=== PATIENT | female | born 1935 | race Two or more races ===

== ENCOUNTER 2016-11-12 15:20 | Inpatient (IN) | payer OTHER ==
[~2016-11-12] VITALS: Ht 149.9 cm; Wt 51.5 kg
[~2016-11-12 15:20] MED LIST: LEVO25CA; METF-312 PO; VALS40TA2
[2016-11-12 16:46] LABS: Urine Bilirubin Negative (Negative); Urine Blood Negative /uL (Negative); Urine Color Yellow (Yellow); Urine Glucose Normal (Normal); Urine Ketone Negative (Negative); Urine Nitrite Negative (Negative); Urine RBC 2 /hpf (0 - 4); Urine Squamous Epithelial Cell FEW /hpf (<5); Urine Urobilinogen Normal (Negative); Urine pH 6.5 (5.0-8.0)
[2016-11-12 16:58] LABS: Albumin 3.9 g/dL (3.4-5.0); BUN/Creatinine Ratio 27.1; Bilirubin, Total 0.3 mg/dL (0.2-1.0); Calcium 9.3 mg/dL (8.5-10.1); Magnesium 1.9 mg/dL (1.6-2.6); Potassium 3.7 mmol/L (3.5-5.1); Total Protein 7.4 g/dL (6.4-8.2)
[2016-11-12 17:03] LABS: B-Type Natriuretic Peptide 32.19 pg/mL (0-100)
[2016-11-12 17:09] LABS: Basophils # (auto) 0 uL; Basophils % (auto) 0.4 % (0.0-2.0); Eosinophils # (auto) 0.1 uL; Eosinophils % (auto) 1.7 % (0.0-7.0); Hematocrit 33.1 % (36.0-46.0); Hemoglobin 10.7 g/dL (12.2-16.2); Lymphocytes # (auto) 2.4 uL; Lymphocytes % (auto) 41.2 % (10.0-50.0); Mean Corpuscular Hgb Conc. 32.4 g/dL (32.0-36.0); Mean Corpuscular Volume 83.5 fL (80.0-100.0); Mean Platelet Volume 9.8 fL (7.4-10.4); Monocytes # (auto) 0.3 uL; Monocytes % (auto) 5.1 % (0.0-12.0); Neutrophils % (auto) 51.6 % (37.0-80.0); Platelet Count (auto) 193 10^3/uL (140-450); Red Cell Distribution Width 14.4 % (11.6-16.0); White Blood Cell 5.7 10^3/uL (4.4-10.8)
[2016-11-12 17:10] LABS: Temperature: 21.9 C (20.0-25.0)
[2016-11-13] MEDS ORDERED: MORPHINE SULFATE 4 MG/ML SYRG IM ONE (02:30)
[2016-11-13] MEDS ORDERED: ASPirin 81 mg TAB PO ONE (02:30)
[2016-11-13] MEDS ORDERED: ONDANSETRON HCL 4 MG/2 ML VIAL IV ONE (02:30)
[2016-11-13] MEDS ORDERED: NITROGLYCERIN 0.4 MG SL TAB SL PRN (02:45)
[2016-11-13] MEDS ORDERED: MORPHINE SULF INJ 2 MG/ML SYRINGE 1ML IV PRN (02:45)
[2016-11-13] MEDS ORDERED: LACTULOSE 20Gm/30ML SOLN PO PRN (02:45)
[2016-11-13] MEDS ORDERED: DEXTROSE (50%) 50ML SYRG IV PRN (02:45)
[2016-11-13] MEDS ORDERED: SODIUM CHLORIDE 0.9% 1,000 ML IV ONE (02:45)
[2016-11-13] MEDS ORDERED: MORPHINE SULFATE 4 MG/ML SYRG IV ONE (02:45)
[2016-11-13] MEDS: cefTRIAXone 1GM/50ML D5W 50 ML IV SCH (02:54)
[2016-11-13 03:50] VITALS: BP 167/67
[2016-11-13 05:00] VITALS: BP 167/67
[2016-11-13] MEDS: ACCU-CHEK COMFORT CURVE STRIP VI SCH ×4 (06:00→23:55)
[2016-11-13] MEDS: InsuLIN REG 1unit/0.01ml Soln (100units/ml) SC SCH ×4 (06:30→23:59)
[2016-11-13 09:00] VITALS: BP 134/76
[2016-11-13] MEDS ORDERED: METOPROLOL TARTRATE 25 MG TAB PO SCH (10:00)
[2016-11-13] MEDS ORDERED: ENALAPRIL MALEATE 10 MG TAB PO SCH (10:00)
[2016-11-13] MEDS: PANTOPRAZOLE SODIUM 40 MG/10 ML VIAL IV SCH (10:32)
[2016-11-13] MEDS: METOPROLOL TARTRATE 50 MG TAB PO SCH ×2 (10:34→22:17)
[2016-11-13] MEDS: ASPirin 81 mg TAB PO SCH (10:34)
[2016-11-13] MEDS: ENOXAPARIN SOD 30 MG/0.3 ML SYRINGE SC SCH (10:36)
[2016-11-13] MEDS: NITROGLYCERIN 0.2MG/HR TOPICAL PATCH TD SCH (10:36)
[2016-11-13] MEDS: VALSARTAN 80 MG TAB PO SCH (10:37)
[2016-11-13 12:46] VITALS: BP 134/59
[2016-11-13 17:00] VITALS: BP 105/49
[2016-11-13 21:34] VITALS: BP 110/48
[2016-11-13] MEDS: ATORVASTATIN 20 MG TAB PO SCH (22:17)
[2016-11-14] MEDS: cefTRIAXone 1GM/50ML D5W 50 ML IV SCH (02:50)
[2016-11-14 05:23] VITALS: BP 114/60
[2016-11-14 05:45] LABS: Basophils # (auto) 0 uL; Basophils % (auto) 0.4 % (0.0-2.0); Eosinophils # (auto) 0.1 uL; Eosinophils % (auto) 2.3 % (0.0-7.0); Hematocrit 29.4 % (36.0-46.0); Hemoglobin 9.7 g/dL (12.2-16.2); Lymphocytes # (auto) 2.3 uL; Lymphocytes % (auto) 46.5 % (10.0-50.0); Mean Corpuscular Hemoglobin 27.2 pg (28.0-32.0); Mean Corpuscular Volume 82.6 fL (80.0-100.0); Mean Platelet Volume 9.8 fL (7.4-10.4); Monocytes # (auto) 0.4 uL; Neutrophils # (auto) 2.1 uL; Neutrophils % (auto) 42.8 % (37.0-80.0); Platelet Count (auto) 165 10^3/uL (140-450); Red Cell Distribution Width 14.1 % (11.6-16.0); White Blood Cell 4.8 10^3/uL (4.4-10.8)
[2016-11-14] MEDS: ACCU-CHEK COMFORT CURVE STRIP VI SCH ×4 (06:04→23:53)
[2016-11-14] MEDS: InsuLIN REG 1unit/0.01ml Soln (100units/ml) SC SCH ×4 (06:08→23:53)
[2016-11-14 06:11] LABS: Albumin 3.1 g/dL (3.4-5.0); BUN/Creatinine Ratio 22.9; Bilirubin, Total 0.3 mg/dL (0.2-1.0); Calcium 8.5 mg/dL (8.5-10.1); Potassium 3.9 mmol/L (3.5-5.1); Total Protein 6.1 g/dL (6.4-8.2)
[2016-11-14 08:00] VITALS: BP 118/52
[2016-11-14] MEDS: PANTOPRAZOLE SODIUM 40 MG/10 ML VIAL IV SCH (09:29)
[2016-11-14] MEDS: ENOXAPARIN SOD 30 MG/0.3 ML SYRINGE SC SCH (09:29)
[2016-11-14] MEDS: ASPirin 81 mg TAB PO SCH (09:29)
[2016-11-14] MEDS: METOPROLOL TARTRATE 50 MG TAB PO SCH ×2 (09:30→21:42)
[2016-11-14] MEDS: VALSARTAN 80 MG TAB PO SCH (09:30)
[2016-11-14] MEDS: NITROGLYCERIN 0.2MG/HR TOPICAL PATCH TD SCH (09:30)
[2016-11-14 12:00] VITALS: BP 115/72
[2016-11-14 16:00] VITALS: BP 102/48
[2016-11-14] MEDS: ATORVASTATIN 20 MG TAB PO SCH (21:42)
[2016-11-14 22:00] VITALS: BP 102/57
[2016-11-15] MEDS: cefTRIAXone 1GM/50ML D5W 50 ML IV SCH (02:51)
[2016-11-15 05:00] VITALS: BP 113/59
[2016-11-15 05:27] LABS: INR 1.06 (0.9-1.15); Partial Thromboplastin Time 28.4 sec (22.64-33.71); Prothrombin Time 10.9 sec (9.37-12.3)
[2016-11-15] MEDS: ACCU-CHEK COMFORT CURVE STRIP VI SCH ×2 (05:44→11:58)
[2016-11-15] MEDS: InsuLIN REG 1unit/0.01ml Soln (100units/ml) SC SCH ×2 (05:49→11:58)
[2016-11-15] MEDS ORDERED: LEVOTHYROXINE SODIUM 100 MCG TAB PO SCH (07:00)
[2016-11-15 08:00] VITALS: BP 104/52
[2016-11-15] MEDS: ASPirin 81 mg TAB PO SCH (08:32)
[2016-11-15] MEDS: PANTOPRAZOLE SODIUM 40 MG/10 ML VIAL IV SCH (08:32)
[2016-11-15] MEDS: VALSARTAN 80 MG TAB PO SCH (08:32)
[2016-11-15] MEDS: ENOXAPARIN SOD 30 MG/0.3 ML SYRINGE SC SCH (08:33)
[2016-11-15] MEDS: METOPROLOL TARTRATE 50 MG TAB PO SCH (08:33)
[2016-11-15] MEDS: NITROGLYCERIN 0.2MG/HR TOPICAL PATCH TD SCH (08:33)
[2016-11-15] MEDS ORDERED: fentaNYL CITRATE 100 MCG/2 ML VL ONE (08:56)
[2016-11-15] MEDS ORDERED: SODIUM CHL 0.9% 0 ML ONE (08:57)
[2016-11-15] MEDS ORDERED: ANGIOMAX 250 MG VIAL IV ONE (08:57)
[2016-11-15] MEDS ORDERED: MIDAZOLAM HCL 1MG/1ML-2 ML VIAL ONE (08:57)
[2016-11-15] MEDS ORDERED: LIDOCAINE 2%HCL (LOCAL ANESTH.) INJ 20ML MDV ONE (09:10)
[2016-11-15] MEDS ORDERED: IODIXANOL 320MG/ML 100ML BTL IV ONE (09:10)
[2016-11-15] MEDS ORDERED: SODIUM CHLORIDE 0.9% 1,000 ML IV SCH (10:59)
[2016-11-15 11:49] VITALS: BP 146/56
[2016-11-15 15:53] VITALS: BP 104/52
[2016-11-15 16:00] VITALS: BP 135/90
== END 2016-11-15 17:48 | disposition home or self-care (01) | DRG 871 ==
LOC: ER 15:32 → TELE 15:33 → TELE-WESTW 11-13 03:57
PROVIDERS: ADMIT Family Medicine; ATTEND Internal Medicine Pulmonary Disease
PROC: 4A023N7 Measurement of Cardiac Sampling and Pressure, Left Heart, Percutaneous Approach (ICD-10-PCS; principal; 2016-11-15)
PROC: B2111ZZ Fluoroscopy of Multiple Coronary Arteries using Low Osmolar Contrast (ICD-10-PCS; 2016-11-15)
PROC: B2151ZZ Fluoroscopy of Left Heart using Low Osmolar Contrast (ICD-10-PCS; 2016-11-15)
DX: A41.9 Sepsis, unspecified organism (principal); I21.4 Non-ST elevation (NSTEMI) myocardial infarction; N39.0 Urinary tract infection, site not specified; I25.110 Atherosclerotic heart disease of native coronary artery with unstable angina pectoris; I11.9 Hypertensive heart disease without heart failure; D63.8 Anemia in other chronic diseases classified elsewhere; E11.65 Type 2 diabetes mellitus with hyperglycemia; E03.9 Hypothyroidism, unspecified; Z79.899 Other long term (current) drug therapy; Z79.84 Long term (current) use of oral hypoglycemic drugs; Z90.49 Acquired absence of other specified parts of digestive tract; Z90.710 Acquired absence of both cervix and uterus
CPT/HCPCS: 36415; 71010; 71020; 80053; 80061; 81001; 82270; 82962; 83036; 83605; 83735; 83880; 84443; 84484; 85025; 85049; 85610; 85730; 86850; 86900; 86901; 87040; 87086; 93005; 93458; 99152; C9113; J0696; J1815; J2250; Q9967

== ENCOUNTER → 2017-10-19 | Outpatient (CLI) | payer OTHER ==
[~2017-10-19] MED LIST changes: -METF-312 PO; +METF-370 PO
[2017-10-19 07:57] LABS: Basophils # (auto) 0 uL; Basophils % (auto) 0.3 % (0.0-2.0); Eosinophils # (auto) 0.1 uL; Hematocrit 33.4 % (36.0-46.0); Hemoglobin 10.8 g/dL (12.2-16.2); Mean Corpuscular Volume 82.1 fL (80.0-100.0); Monocytes # (auto) 0.4 uL
[2017-10-19 07:59] LABS: Eosinophils % (auto) 1.5 % (0.0-7.0); Lymphocytes # (auto) 2.9 uL; Lymphocytes % (auto) 39.3 % (10.0-50.0); Mean Corpuscular Hemoglobin 26.6 pg (28.0-32.0); Mean Corpuscular Hgb Conc. 32.4 g/dL (32.0-36.0); Mean Platelet Volume 9.2 fL (6.9-10.8); Monocytes % (auto) 5.8 % (0.0-12.0); Neutrophils # (auto) 3.9 uL; Neutrophils % (auto) 53.1 % (37.0-80.0); Platelet Count (auto) 166 10^3/uL (140-450); Red Cell Distribution Width 15.3 % (11.8-14.3); White Blood Cell 7.4 10^3/uL (4.4-10.8)
[2017-10-19 08:36] LABS: Albumin 3.6 g/dL (3.4-5.0); BUN/Creatinine Ratio 21.7; Bilirubin, Total 0.4 mg/dL (0.2-1.0); Calcium 9.1 mg/dL (8.5-10.1); Potassium 4.2 mmol/L (3.5-5.1); Total Protein 7.2 g/dL (6.4-8.2)
== END | disposition home or self-care (01) ==
LOC: LAB 07:06
PROVIDERS: ATTEND Physician Assistant
DX: E11.9 Type 2 diabetes mellitus without complications (principal); D64.9 Anemia, unspecified; E78.5 Hyperlipidemia, unspecified; R52 Pain, unspecified
CPT/HCPCS: 36415; 80053; 80061; 83036; 84443; 85025

== ENCOUNTER → 2018-09-13 | Outpatient (CLI) | payer OTHER ==
[2018-09-13 08:34] LABS: Basophils # (auto) 0 uL; Basophils % (auto) 0.6 % (0.0-2.0); Eosinophils # (auto) 0.1 uL; Eosinophils % (auto) 2.8 % (0.0-7.0); Hematocrit 34.4 % (36.0-46.0); Hemoglobin 11.1 g/dL (12.2-16.2); Lymphocytes # (auto) 1.8 uL; Lymphocytes % (auto) 40.2 % (10.0-50.0); Mean Corpuscular Hemoglobin 26.5 pg (28.0-32.0); Mean Corpuscular Hgb Conc. 32.1 g/dL (32.0-36.0); Mean Corpuscular Volume 82.6 fL (80.0-100.0); Monocytes # (auto) 0.3 uL; Monocytes % (auto) 6.5 % (0.0-12.0); Neutrophils # (auto) 2.3 uL; Neutrophils % (auto) 49.9 % (37.0-80.0); Nucleated Red Blood Cells % 0.1 %; Platelet Count (auto) 175 10^3/uL (140-450); Red Blood Cells 4.17 10^6/uL (4.0-5.20); Red Cell Distribution Width 16.4 % (11.8-14.3); White Blood Cell 4.5 10^3/uL (4.4-10.8)
[2018-09-13 08:37] LABS: Urine Bacteria NONE SEEN /hpf (None Seen); Urine Blood TRACE /uL (Negative); Urine Specific Gravity 1.014 (1.001-1.035); Urine WBC 25 /hpf (0 - 5)
[2018-09-13 09:20] LABS: Free T4 (Free Thyroxine) 1.04 ng/dL (0.89-1.76); T3 Total 0.93 ng/mL (0.60-1.81)
[2018-09-13 18:28] LABS: Potassium 4.3 mmol/L (3.5-5.1)
[2018-09-13 18:40] LABS: Albumin 3.7 g/dL (3.4-5.0); BUN/Creatinine Ratio 22.8; Bilirubin, Total 0.4 mg/dL (0.2-1.0); Total Protein 7.2 g/dL (6.4-8.2)
== END | disposition home or self-care (01) ==
LOC: LAB 07:59
PROVIDERS: ATTEND Physician Assistant
DX: I10 Essential (primary) hypertension (principal); E03.9 Hypothyroidism, unspecified; E11.65 Type 2 diabetes mellitus with hyperglycemia; E78.5 Hyperlipidemia, unspecified
CPT/HCPCS: 36415; 80053; 80061; 81001; 83036; 84439; 84443; 84480; 85025

== ENCOUNTER → 2019-11-30 | Outpatient (CLI) | payer OTHER ==
[~2019-11-30] MED LIST changes: -LEVO25CA; +LEVO25CA2
[2019-11-30 08:50] LABS: Basophils # (auto) 0 uL; Basophils % (auto) 0.5 % (0.0-2.0); Eosinophils # (auto) 0.1 uL; Eosinophils % (auto) 1.9 % (0.0-7.0); Hematocrit 33.5 % (36.0-46.0); Hemoglobin 10.9 g/dL (12.2-16.2); Lymphocytes % (auto) 32.8 % (10.0-50.0); Mean Corpuscular Hemoglobin 26.9 pg (28.0-32.0); Mean Corpuscular Hgb Conc. 32.4 g/dL (32.0-36.0); Monocytes # (auto) 0.3 uL; Monocytes % (auto) 5.5 % (0.0-12.0); Neutrophils # (auto) 3.5 uL; Neutrophils % (auto) 59.3 % (37.0-80.0); Nucleated Red Blood Cells % 0.1 %; Platelet Count (auto) 196 10^3/uL (140-450); Red Blood Cells 4.04 10^6/uL (4.0-5.20); Red Cell Distribution Width 14.9 % (11.8-14.3)
[2019-11-30 09:00] LABS: Urine Bacteria NONE SEEN /hpf (None Seen); Urine Blood Negative /uL (Negative); Urine Specific Gravity 1.007 (1.001-1.035); Urine WBC 9 /hpf (0 - 5)
[2019-11-30 09:22] LABS: Albumin 3.3 g/dL (3.4-5.0); Calcium 9.3 mg/dL (8.5-10.1); Potassium 3.9 mmol/L (3.5-5.1)
[2019-11-30 09:26] LABS: Bilirubin, Total 0.3 mg/dL (0.2-1.0); Total Protein 6.7 g/dL (6.4-8.2)
== END | disposition home or self-care (01) ==
LOC: LAB 08:35
PROVIDERS: ATTEND Physician Assistant
DX: E11.9 Type 2 diabetes mellitus without complications (principal); E11.65 Type 2 diabetes mellitus with hyperglycemia; E03.9 Hypothyroidism, unspecified; E78.5 Hyperlipidemia, unspecified; I10 Essential (primary) hypertension
CPT/HCPCS: 36415; 80053; 80061; 81001; 83036; 84443; 85025

== ENCOUNTER 2021-12-15 18:09 | Inpatient (IN) | payer OTHER ==
[~2021-12-15] VITALS: Ht 149.9 cm; Wt 53.7 kg
[2021-12-15 18:35] VITALS: BP 136/58
[2021-12-15] MEDS ORDERED: MORPHINE SULFATE INJECTION 2 MG/ML SYRG IV PRN (18:45)
[2021-12-15] MEDS ORDERED: HYDROcodone-ACET 5/325MG TAB PO ONE (18:45)
[2021-12-15] MEDS ORDERED: DEXTROSE (50%) 50ML SYRG IV PRN (18:45)
[2021-12-15] MEDS ORDERED: NITROGLYCERIN 0.4 MG SL TAB SL PRN (18:45)
[2021-12-15] MEDS ORDERED: LORazepam 0.5 MG TAB PO PRN (18:45)
[2021-12-15] MEDS ORDERED: HYDROcodone-ACET 5/325MG TAB PO PRN (18:45)
[2021-12-15] MEDS ORDERED: LACTULOSE 20Gm/30ML SOLN PO PRN (18:45)
[2021-12-15] MEDS ORDERED: IPRATROPIUM BROM 0.5 MG/2.5ML INH SOL NEB ONE (18:45)
[2021-12-15 20:05] LABS: Basophils # (auto) 0 10 ^3/uL (0-0.2); Eosinophils # (auto) 0 10 ^3/uL (0-0.8); Eosinophils % (auto) 0.4 % (0.0-7.0); Hemoglobin 7.4 g/dL (12.2-16.2); Lymphocytes # (auto) 0.9 10 ^3/uL (0.4-5.4)
[2021-12-15 20:07] LABS: Basophils % (auto) 0.3 % (0.0-2.0); Hematocrit 23.6 % (36.0-46.0); Lymphocytes % (auto) 9.1 % (10.0-50.0); Mean Corpuscular Hemoglobin 21.4 pg (28.0-32.0); Mean Corpuscular Hgb Conc. 31.3 g/dL (32.0-36.0); Mean Corpuscular Volume 68.4 fL (80.0-100.0); Monocytes # (auto) 0.7 10 ^3/uL (0-1.3); Monocytes % (auto) 6.6 % (0.0-12.0); Neutrophils # (auto) 8.2 10 ^3/uL (1.6-8.6); Neutrophils % (auto) 83.6 % (37.0-80.0); Red Blood Cells 3.45 10^6/uL (4.0-5.20); Red Cell Distribution Width 19.7 % (11.8-14.3); White Blood Cell 9.8 10^3/uL (4.4-10.8)
[2021-12-15 20:25] LABS: Albumin 2.8 g/dL (3.4-5.0); Calcium 8.8 mg/dL (8.5-10.1); Magnesium 2.4 mg/dL (1.6-2.6); Potassium 3.9 mmol/L (3.5-5.1)
[2021-12-15 20:28] LABS: INR 1.13 (0.9-1.15); Partial Thromboplastin Time 31.5 sec (23.6-33.0)
[2021-12-15 20:34] LABS: Bilirubin, Total 1.3 mg/dL (0.2-1.0); Phosphorus 3.2 mg/dL (2.5-4.90); Total Protein 6.5 g/dL (6.4-8.2)
[2021-12-15 22:00] VITALS: BP 133/56
[2021-12-15] MEDS ORDERED: ATORVASTATIN 20 MG TAB PO SCH (22:00)
[2021-12-15] MEDS ORDERED: IPRATROPIUM BROM 0.5 MG/2.5ML INH SOL NEB SCH (22:00)
[2021-12-15] MEDS: SODIUM CHLORIDE 0.9% 1,000 ML IV SCH (22:30)
[2021-12-15] MEDS: ACCU-CHEK COMFORT CURVE STRIP VI SCH (22:51)
[2021-12-15] MEDS: PANTOPRAZOLE 40 MG/10 ML VIAL INJ IV SCH (22:51)
[2021-12-15] MEDS: InsuLIN REG 1unit/0.01ml Soln (100units/ml) SC SCH (23:06)
[2021-12-16] VITALS (15 sets, daily range): BP systolic 142–173; BP diastolic 56–88
[2021-12-16 05:21] LABS: Amphetamine Screen, Urine NEGATIVE (NEGATIVE); Barbiturate Scree,Urine NEGATIVE (NEGATIVE); Benzodiazephine Screen, Urine NEGATIVE (NEGATIVE); Cannabinoid Screen, Urine NEGATIVE (NEGATIVE); Cocaine Screen, Urine NEGATIVE (NEGATIVE); Opiate Scree,Urine POSITIVE (NEGATIVE); Phencyclidine Screen, Urine NEGATIVE (NEGATIVE)
[2021-12-16 05:59] LABS: Urine Bacteria FEW /hpf (None Seen); Urine Blood Negative /uL (Negative); Urine Hyaline Cast FEW /lpf (0 - 2); Urine Specific Gravity 1.017 (1.001-1.035); Urine WBC 10 /hpf (0 - 5)
[2021-12-16] MEDS: ACCU-CHEK COMFORT CURVE STRIP VI SCH ×4 (05:59→21:28)
[2021-12-16] MEDS: InsuLIN REG 1unit/0.01ml Soln (100units/ml) SC SCH ×4 (06:02→21:29)
[2021-12-16 07:44] LABS: Basophils # (auto) 0 10 ^3/uL (0-0.2); Basophils % (auto) 0.3 % (0.0-2.0); Eosinophils # (auto) 0.1 10 ^3/uL (0-0.8); Lymphocytes # (auto) 0.8 10 ^3/uL (0.4-5.4); Monocytes # (auto) 0.4 10 ^3/uL (0-1.3); Neutrophils # (auto) 3.5 10 ^3/uL (1.6-8.6); White Blood Cell 4.8 10^3/uL (4.4-10.8)
[2021-12-16 07:46] LABS: Eosinophils % (auto) 1.7 % (0.0-7.0); Lymphocytes % (auto) 16.6 % (10.0-50.0); Mean Corpuscular Hgb Conc. 30.6 g/dL (32.0-36.0); Mean Corpuscular Volume 68.6 fL (80.0-100.0); Monocytes % (auto) 8.6 % (0.0-12.0); Neutrophils % (auto) 72.8 % (37.0-80.0); Nucleated Red Blood Cells % 0.1 %; Red Blood Cells 3.21 10^6/uL (4.0-5.20); Red Cell Distribution Width 19.3 % (11.8-14.3)
[2021-12-16 07:56] LABS: INR 1.12 (0.9-1.15); Partial Thromboplastin Time 29.9 sec (23.6-33.0)
[2021-12-16 08:05] LABS: Hemoglobin 6.8 g/dL (12.2-16.2)
[2021-12-16 08:30] LABS: Alanine Aminotransferase 53 U/L (13-56); Albumin 2.4 g/dL (3.4-5.0); Alkaline Phosphatase 281 U/L (45-117); Aspartate Aminotransferase 93 U/L (15-37); BUN/Creatinine Ratio 20.9; Bilirubin, Total 0.6 mg/dL (0.2-1.0); Blood Urea Nitrogen 27 mg/dL (7-18); CRP High Sensitivity 6.47 mg/dL (< 0.3); Calcium 8.1 mg/dL (8.5-10.1); Carbon Dioxide 23 mmol/L (21-32); Cholesterol 93 mg/dL (< 200); GFR African American 50 mL/min; GFR Non-African American 41 mL/min; Glucose 147 mg/dL (74-106); HDL Cholesterol 29 mg/dL (40-59); LDL Cholesterol 45 mg/dL (< 100); Total Protein 5.9 g/dL (6.4-8.2); Triglycerides 119 mg/dL (< 150); Uric Acid 7.9 mg/dL (2.6-6.0)
[2021-12-16 08:44] LABS: Anion Gap 6 (5-15); Chloride 113 mmol/L (98-107); Potassium 3.8 mmol/L (3.5-5.1); Sodium 142 mmol/L (136-145)
[2021-12-16] MEDS: PANTOPRAZOLE 40 MG/10 ML VIAL INJ IV SCH ×2 (09:36→22:07)
[2021-12-16] MEDS ORDERED: ASPirin 81 mg TAB PO SCH (10:00)
[2021-12-16] MEDS ORDERED: ENOXAPARIN SOD 30 MG/0.3 ML SYRINGE SC SCH (10:00)
[2021-12-16] MEDS: SODIUM CHLORIDE 0.9% 1,000 ML IV SCH (15:03)
[2021-12-16 19:08] LABS: Basophils # (auto) 0 10 ^3/uL (0-0.2); Basophils % (auto) 0.3 % (0.0-2.0); Eosinophils # (auto) 0.1 10 ^3/uL (0-0.8); Eosinophils % (auto) 1.7 % (0.0-7.0); Hematocrit 27.2 % (36.0-46.0); Hemoglobin 8.8 g/dL (12.2-16.2); Lymphocytes # (auto) 0.8 10 ^3/uL (0.4-5.4); Lymphocytes % (auto) 15.3 % (10.0-50.0); Mean Corpuscular Hemoglobin 23.8 pg (28.0-32.0); Mean Corpuscular Hgb Conc. 32.3 g/dL (32.0-36.0); Mean Corpuscular Volume 73.9 fL (80.0-100.0); Monocytes # (auto) 0.4 10 ^3/uL (0-1.3); Monocytes % (auto) 8.3 % (0.0-12.0); Neutrophils # (auto) 3.7 10 ^3/uL (1.6-8.6); Neutrophils % (auto) 74.4 % (37.0-80.0); Red Blood Cells 3.69 10^6/uL (4.0-5.20)
[2021-12-16 19:09] LABS: Red Cell Distribution Width 25.2 % (11.8-14.3)
[2021-12-16 19:27] LABS: Albumin 2.4 g/dL (3.4-5.0); Calcium 8.3 mg/dL (8.5-10.1); Potassium 4.1 mmol/L (3.5-5.1)
[2021-12-16 19:31] LABS: BUN/Creatinine Ratio 21.8; Bilirubin, Total 0.7 mg/dL (0.2-1.0); Total Protein 5.7 g/dL (6.4-8.2)
[2021-12-16 19:40] LABS: INR 1.11 (0.9-1.15); Partial Thromboplastin Time 25.7 sec (23.6-33.0)
[2021-12-16] MEDS: ATORVASTATIN 20 MG TAB PO SCH (21:28)
[2021-12-17] VITALS (11 sets, daily range): BP systolic 127–197; BP diastolic 60–82
[2021-12-17] MEDS: hydrALAZINE HCL 20 MG/ML VL IV PRN ×2 (05:01→15:20)
[2021-12-17] MEDS: InsuLIN REG 1unit/0.01ml Soln (100units/ml) SC SCH ×4 (05:17→21:20)
[2021-12-17] MEDS: ACCU-CHEK COMFORT CURVE STRIP VI SCH ×4 (05:17→21:19)
[2021-12-17 05:41] LABS: Basophils # (auto) 0 10 ^3/uL (0-0.2); Eosinophils # (auto) 0.1 10 ^3/uL (0-0.8); Hemoglobin 10.2 g/dL (12.2-16.2); Lymphocytes # (auto) 0.9 10 ^3/uL (0.4-5.4); Neutrophils # (auto) 3.3 10 ^3/uL (1.6-8.6); Nucleated Red Blood Cells % 0.1 %; White Blood Cell 4.7 10^3/uL (4.4-10.8)
[2021-12-17 05:43] LABS: Basophils % (auto) 0.5 % (0.0-2.0); Eosinophils % (auto) 2.3 % (0.0-7.0); Hematocrit 31.3 % (36.0-46.0); Lymphocytes % (auto) 19.3 % (10.0-50.0); Mean Corpuscular Hgb Conc. 32.6 g/dL (32.0-36.0); Mean Corpuscular Volume 76.8 fL (80.0-100.0); Monocytes # (auto) 0.4 10 ^3/uL (0-1.3); Monocytes % (auto) 8.7 % (0.0-12.0); Neutrophils % (auto) 69.2 % (37.0-80.0); Red Blood Cells 4.08 10^6/uL (4.0-5.20)
[2021-12-17 05:45] LABS: Red Cell Distribution Width 24.9 % (11.8-14.3)
[2021-12-17] MEDS: PANTOPRAZOLE 40 MG/10 ML VIAL INJ IV SCH ×2 (10:11→21:19)
[2021-12-17] MEDS ORDERED: ceFAZolin 1GM/50ML 100 ML IV ONE (15:02)
[2021-12-17] MEDS ORDERED: MIDAZOLAM HCL 2MG/2ML 2ml VIAL (1mg/ml) ONE (15:24)
[2021-12-17] MEDS ORDERED: fentaNYL CITRATE 100 MCG/2 ML VL ONE (15:24)
[2021-12-17] MEDS ORDERED: GLYCOPYRROLATE 0.2 MG/ML 1ML VIAL ONE (15:25)
[2021-12-17] MEDS ORDERED: ePHEDrine SULFATE 50 MG/ML AMP ONE (15:25)
[2021-12-17] MEDS ORDERED: ONDANSETRON HCL 4 MG/2 ML VIAL ONE (15:25)
[2021-12-17] MEDS ORDERED: PHENYLEPHRINE HCL 10 MG/ML VL ONE (15:25)
[2021-12-17] MEDS ORDERED: PROPOFOL 10 MG/ML 20 ML IV ONE (15:25)
[2021-12-17] MEDS ORDERED: MORPHINE SULF PF 2 MG/2 ML SYRG ONE (15:27)
[2021-12-17] MEDS ORDERED: BUPIVACAINE 0.5% P/F INJ 10 ML VIAL ONE (15:28)
[2021-12-17] MEDS ORDERED: diphenhdrAMINE HCL 50 MG/1 ML VL IV PRN (17:00)
[2021-12-17] MEDS ORDERED: ONDANSETRON HCL 4 MG/2 ML VIAL IV PRN ×2 (17:00)
[2021-12-17] MEDS ORDERED: NALOXONE HCL 0.4 MG/ML VIAL IV PRN ×2 (17:00)
[2021-12-17] MEDS ORDERED: DexAMETHasone SOD PHOS 10MG/1ML VIAL INJ IV PRN (17:00)
[2021-12-17] MEDS: ceFAZolin 1GM/50ML 50 ML IV SCH ×2 (19:45→23:46)
[2021-12-17] MEDS: ONDANSETRON HCL 4 MG/2 ML VIAL IV PRN (19:46)
[2021-12-17] MEDS: ATORVASTATIN 20 MG TAB PO SCH (21:19)
[2021-12-18] VITALS (20 sets, daily range): BP systolic 128–195; BP diastolic 45–83
[2021-12-18] MEDS: ceFAZolin 1GM/50ML 50 ML IV SCH ×3 (05:30→21:40)
[2021-12-18] MEDS: ACCU-CHEK COMFORT CURVE STRIP VI SCH ×4 (06:30→21:40)
[2021-12-18] MEDS: InsuLIN REG 1unit/0.01ml Soln (100units/ml) SC SCH ×4 (06:31→21:49)
[2021-12-18 07:14] LABS: Basophils # (auto) 0 10 ^3/uL (0-0.2); Basophils % (auto) 0.1 % (0.0-2.0); Eosinophils # (auto) 0 10 ^3/uL (0-0.8); Hematocrit 33.2 % (36.0-46.0); Hemoglobin 10.3 g/dL (12.2-16.2); Lymphocytes # (auto) 0.6 10 ^3/uL (0.4-5.4); Lymphocytes % (auto) 10.6 % (10.0-50.0); Mean Corpuscular Hemoglobin 24.1 pg (28.0-32.0); Mean Corpuscular Hgb Conc. 31.1 g/dL (32.0-36.0); Mean Corpuscular Volume 77.5 fL (80.0-100.0); Monocytes # (auto) 0.6 10 ^3/uL (0-1.3); Neutrophils # (auto) 4.9 10 ^3/uL (1.6-8.6); Neutrophils % (auto) 80.3 % (37.0-80.0); Red Blood Cells 4.29 10^6/uL (4.0-5.20); Red Cell Distribution Width 24.8 % (11.8-14.3); White Blood Cell 6.2 10^3/uL (4.4-10.8)
[2021-12-18 07:20] LABS: BUN/Creatinine Ratio 22.6; Calcium 8.4 mg/dL (8.5-10.1); Potassium 4.1 mmol/L (3.5-5.1)
[2021-12-18] MEDS: ENOXAPARIN SOD 30 MG/0.3 ML SYRINGE SC SCH (09:38)
[2021-12-18] MEDS: PANTOPRAZOLE 40 MG/10 ML VIAL INJ IV SCH ×2 (09:38→21:40)
[2021-12-18] MEDS: ASPirin 81 mg TAB PO SCH (09:38)
[2021-12-18] MEDS: hydrALAZINE HCL 20 MG/ML VL IV PRN (09:39)
[2021-12-18] MEDS: MORPHINE SULFATE INJECTION 2 MG/ML SYRG IV PRN ×2 (17:20→23:06)
[2021-12-18] MEDS: ONDANSETRON HCL 4 MG/2 ML VIAL IV PRN (17:20)
[2021-12-18] MEDS: ATORVASTATIN 20 MG TAB PO SCH (21:40)
[2021-12-18] MEDS: HYDROcodone-ACET 5/325MG TAB PO PRN (21:49)
[2021-12-19 05:00] VITALS: BP 137/51
[2021-12-19] MEDS: ceFAZolin 1GM/50ML 50 ML IV SCH ×3 (05:30→21:34)
[2021-12-19] MEDS: MORPHINE SULFATE INJECTION 2 MG/ML SYRG IV PRN ×3 (06:16→22:57)
[2021-12-19] MEDS: InsuLIN REG 1unit/0.01ml Soln (100units/ml) SC SCH ×4 (06:17→21:34)
[2021-12-19] MEDS: ACCU-CHEK COMFORT CURVE STRIP VI SCH ×4 (06:21→21:34)
[2021-12-19] MEDS: HYDROcodone-ACET 5/325MG TAB PO PRN ×2 (08:06→20:06)
[2021-12-19 09:00] VITALS: BP 160/97
[2021-12-19] MEDS: PANTOPRAZOLE 40 MG/10 ML VIAL INJ IV SCH ×2 (09:45→21:34)
[2021-12-19] MEDS: ASPirin 81 mg TAB PO SCH (09:45)
[2021-12-19] MEDS: VALSARTAN 80 MG TAB PO SCH (09:46)
[2021-12-19] MEDS: ENOXAPARIN SOD 30 MG/0.3 ML SYRINGE SC SCH (09:46)
[2021-12-19 13:00] VITALS: BP 129/52
[2021-12-19 17:00] VITALS: BP 150/62
[2021-12-19 21:31] VITALS: BP 141/65
[2021-12-19] MEDS: ATORVASTATIN 20 MG TAB PO SCH (21:34)
[2021-12-19 23:57] VITALS: BP 146/62
[2021-12-20 05:00] VITALS: BP 131/46
[2021-12-20] MEDS: ceFAZolin 1GM/50ML 50 ML IV SCH ×2 (05:57→14:13)
[2021-12-20] MEDS: MORPHINE SULFATE INJECTION 2 MG/ML SYRG IV PRN ×2 (06:07→12:39)
[2021-12-20] MEDS: InsuLIN REG 1unit/0.01ml Soln (100units/ml) SC SCH ×3 (06:33→17:21)
[2021-12-20] MEDS: ACCU-CHEK COMFORT CURVE STRIP VI SCH ×3 (06:36→17:20)
[2021-12-20 09:25] VITALS: BP 148/57
[2021-12-20] MEDS: PANTOPRAZOLE 40 MG/10 ML VIAL INJ IV SCH (09:49)
[2021-12-20] MEDS: ASPirin 81 mg TAB PO SCH (09:49)
[2021-12-20] MEDS: ENOXAPARIN SOD 30 MG/0.3 ML SYRINGE SC SCH (09:50)
[2021-12-20] MEDS: VALSARTAN 80 MG TAB PO SCH (09:50)
[2021-12-20 12:58] VITALS: BP 145/59
[2021-12-20] MEDS ORDERED: APIX2.5T PO (13:59)
[2021-12-20] MEDS ORDERED: METF-929 PO (13:59)
[2021-12-20 17:00] VITALS: BP 147/64
[2021-12-20] MEDS: HYDROcodone-ACET 5/325MG TAB PO PRN (17:20)
== END 2021-12-20 18:19 | disposition home health service (06) | DRG 480 ==
LOC: TELE 18:09 → TELE-EAST 18:43
PROVIDERS: ADMIT Internal Medicine; ATTEND Internal Medicine
PROC: 30233N1 Transfusion of Nonautologous Red Blood Cells into Peripheral Vein, Percutaneous Approach (ICD-10-PCS; principal; 2021-12-16)
PROC: 0QS704Z Reposition Left Upper Femur with Internal Fixation Device, Open Approach (ICD-10-PCS; 2021-12-17)
DX: S72.142A Displaced intertrochanteric fracture of left femur, initial encounter for closed fracture (principal); U07.1 COVID-19; I25.10 Atherosclerotic heart disease of native coronary artery without angina pectoris; W18.30XA Fall on same level, unspecified, initial encounter; E11.9 Type 2 diabetes mellitus without complications; E03.9 Hypothyroidism, unspecified; D64.9 Anemia, unspecified; I10 Essential (primary) hypertension; Z82.49 Family history of ischemic heart disease and other diseases of the circulatory system; Y92.009 Unspecified place in unspecified non-institutional (private) residence as the place of occurrence of the external cause; Z83.3 Family history of diabetes mellitus; Z80.9 Family history of malignant neoplasm, unspecified
CPT/HCPCS: 36415; 71045; 73502; 73562; 76000; 80048; 80053; 80061; 80307; 81001; 82043; 82728; 82962; 83036; 83735; 83880; 84100; 84443; 84484; 84550; 85025; 85379; 85610; 85652; 85730; 86141; 86850; 86900; 86901; 86920; 87040; 87086; 87426; 93005; 93306; 93971; 97163; A4565; C1713; C9113; G0378; J0690; J1815; J2250; J2405; J2704; J3490

== ENCOUNTER 2021-12-26 13:07 | Inpatient (IN) | payer OTHER ==
[~2021-12-26] VITALS: Ht 149.9 cm; Wt 50.0 kg
[~2021-12-26 13:07] MED LIST changes: +APIX2.5T PO; -METF-370 PO; +METF-929 PO
[2021-12-26] MEDS ORDERED: HYDROcodone-ACET 5/325MG TAB PO ONE (15:45)
[2021-12-26] MEDS ORDERED: DOCUSATE SOD 100 MG CAP PO PRN (21:00)
[2021-12-26] MEDS ORDERED: MORPHINE SULFATE 4 MG/ML SYR/VIAL IV PRN (21:00)
[2021-12-26] MEDS ORDERED: DEXTROSE (50%) 50ML SYRG IV PRN (21:00)
[2021-12-26] MEDS ORDERED: ACETAMINOPHEN 325 MG TAB PO PRN (21:00)
[2021-12-26] MEDS ORDERED: ONDANSETRON HCL 4 MG/2 ML VIAL IV PRN (21:00)
[2021-12-26] MEDS ORDERED: hydrALAZINE HCL 20 MG/ML VL IV PRN (21:00)
[2021-12-26] MEDS: InsuLIN REG 1unit/0.01ml Soln (100units/ml) SC SCH (22:00)
[2021-12-26] MEDS: ACCU-CHEK COMFORT CURVE STRIP VI SCH (22:00)
[2021-12-26 22:46] LABS: Basophils # (auto) 0.3 10 ^3/uL (0-0.2); Basophils % (auto) 3.6 % (0.0-2.0); Eosinophils # (auto) 0.1 10 ^3/uL (0-0.8); Eosinophils % (auto) 1.3 % (0.0-7.0); Hematocrit 30.3 % (36.0-46.0); Hemoglobin 9.8 g/dL (12.2-16.2); Lymphocytes % (auto) 11.6 % (10.0-50.0); Mean Corpuscular Hemoglobin 25.7 pg (28.0-32.0); Mean Corpuscular Hgb Conc. 32.4 g/dL (32.0-36.0); Mean Corpuscular Volume 79.3 fL (80.0-100.0); Monocytes # (auto) 0.3 10 ^3/uL (0-1.3); Monocytes % (auto) 3.5 % (0.0-12.0); Neutrophils # (auto) 6.9 10 ^3/uL (1.6-8.6); Nucleated Red Blood Cells % 0.1 %; Red Blood Cells 3.82 10^6/uL (4.0-5.20); Red Cell Distribution Width 26.2 % (11.8-14.3); White Blood Cell 8.6 10^3/uL (4.4-10.8)
[2021-12-26 23:04] LABS: Albumin 2.6 g/dL (3.4-5.0); Calcium 8.4 mg/dL (8.5-10.1); Potassium 3.7 mmol/L (3.5-5.1)
[2021-12-26 23:09] LABS: Bilirubin, Total 0.6 mg/dL (0.2-1.0); Total Protein 6.4 g/dL (6.4-8.2)
[2021-12-26 23:15] VITALS: BP 173/72
[2021-12-27 04:58] VITALS: BP 176/66
[2021-12-27] MEDS: HYDROcodone-ACET 5/325MG TAB PO PRN ×3 (05:38→22:49)
[2021-12-27 06:07] LABS: Basophils # (auto) 0 10 ^3/uL (0-0.2); Basophils % (auto) 0.6 % (0.0-2.0); Eosinophils # (auto) 0.1 10 ^3/uL (0-0.8); Hematocrit 27.8 % (36.0-46.0); Hemoglobin 9.5 g/dL (12.2-16.2); Lymphocytes # (auto) 1.7 10 ^3/uL (0.4-5.4); Mean Corpuscular Hemoglobin 26.2 pg (28.0-32.0); Mean Corpuscular Volume 77.1 fL (80.0-100.0); Monocytes # (auto) 0.4 10 ^3/uL (0-1.3); Monocytes % (auto) 5.1 % (0.0-12.0); Neutrophils # (auto) 5.1 10 ^3/uL (1.6-8.6); Neutrophils % (auto) 70.3 % (37.0-80.0); Red Blood Cells 3.61 10^6/uL (4.0-5.20); White Blood Cell 7.3 10^3/uL (4.4-10.8)
[2021-12-27 06:08] LABS: Red Cell Distribution Width 25.2 % (11.8-14.3)
[2021-12-27 06:20] LABS: Potassium 3.2 mmol/L (3.5-5.1)
[2021-12-27 06:23] LABS: Albumin 2.4 g/dL (3.4-5.0); BUN/Creatinine Ratio 28.7; Calcium 8.3 mg/dL (8.5-10.1)
[2021-12-27 06:27] LABS: Bilirubin, Total 0.6 mg/dL (0.2-1.0); Total Protein 5.8 g/dL (6.4-8.2)
[2021-12-27] MEDS: LEVOTHYROXINE SODIUM 25 MCG TAB PO SCH (06:32)
[2021-12-27] MEDS: InsuLIN REG 1unit/0.01ml Soln (100units/ml) SC SCH ×4 (06:34→22:50)
[2021-12-27 09:00] VITALS: BP 143/51
[2021-12-27] MEDS: APIXABAN 2.5 MG TAB PO SCH ×3 (10:00→22:49)
[2021-12-27] MEDS: FAMOTIDINE 20 MG TAB PO SCH (10:01)
[2021-12-27] MEDS: VALSARTAN 80 MG TAB PO SCH (10:01)
[2021-12-27] MEDS: ACCU-CHEK COMFORT CURVE STRIP VI SCH ×4 (10:02→22:49)
[2021-12-27 12:30] VITALS: BP 146/43
[2021-12-27 17:06] VITALS: BP 147/84
[2021-12-27 22:13] VITALS: BP 154/55
[2021-12-28 05:00] VITALS: BP 151/60
[2021-12-28 05:32] LABS: Basophils # (auto) 0 10 ^3/uL (0-0.2); Eosinophils # (auto) 0.1 10 ^3/uL (0-0.8); Lymphocytes # (auto) 1.8 10 ^3/uL (0.4-5.4); Monocytes # (auto) 0.4 10 ^3/uL (0-1.3)
[2021-12-28 05:37] LABS: Basophils % (auto) 0.5 % (0.0-2.0); Eosinophils % (auto) 1.3 % (0.0-7.0); Hematocrit 27.3 % (36.0-46.0); Hemoglobin 9.1 g/dL (12.2-16.2); Lymphocytes % (auto) 24.4 % (10.0-50.0); Mean Corpuscular Hemoglobin 25.7 pg (28.0-32.0); Mean Corpuscular Hgb Conc. 33.3 g/dL (32.0-36.0); Neutrophils # (auto) 4.9 10 ^3/uL (1.6-8.6); Neutrophils % (auto) 67.8 % (37.0-80.0); Red Blood Cells 3.54 10^6/uL (4.0-5.20); White Blood Cell 7.2 10^3/uL (4.4-10.8)
[2021-12-28] MEDS: LEVOTHYROXINE SODIUM 25 MCG TAB PO SCH (05:37)
[2021-12-28] MEDS: ACCU-CHEK COMFORT CURVE STRIP VI SCH ×4 (05:37→21:16)
[2021-12-28] MEDS: InsuLIN REG 1unit/0.01ml Soln (100units/ml) SC SCH ×4 (05:38→21:16)
[2021-12-28] MEDS: HYDROcodone-ACET 5/325MG TAB PO PRN ×3 (05:38→21:17)
[2021-12-28 05:55] LABS: Calcium 8.5 mg/dL (8.5-10.1); Potassium 3.1 mmol/L (3.5-5.1)
[2021-12-28 05:58] LABS: BUN/Creatinine Ratio 23.3
[2021-12-28 06:28] LABS: Red Cell Distribution Width 26.2 % (11.8-14.3)
[2021-12-28 09:00] VITALS: BP 143/62
[2021-12-28] MEDS: VALSARTAN 80 MG TAB PO SCH (09:49)
[2021-12-28] MEDS: APIXABAN 2.5 MG TAB PO SCH ×2 (09:49→21:15)
[2021-12-28] MEDS: FAMOTIDINE 20 MG TAB PO SCH (09:50)
[2021-12-28 12:33] VITALS: BP 139/59
[2021-12-28 16:45] VITALS: BP 121/44
[2021-12-28 22:00] VITALS: BP 148/60
[2021-12-29 05:00] VITALS: BP 141/60
[2021-12-29] MEDS: LEVOTHYROXINE SODIUM 25 MCG TAB PO SCH (05:38)
[2021-12-29] MEDS: ACCU-CHEK COMFORT CURVE STRIP VI SCH ×4 (05:38→21:13)
[2021-12-29] MEDS: InsuLIN REG 1unit/0.01ml Soln (100units/ml) SC SCH ×4 (05:39→21:14)
[2021-12-29] MEDS: HYDROcodone-ACET 5/325MG TAB PO PRN ×3 (05:41→21:13)
[2021-12-29 06:19] LABS: Basophils # (auto) 0 10 ^3/uL (0-0.2); Eosinophils # (auto) 0.1 10 ^3/uL (0-0.8); Monocytes # (auto) 0.4 10 ^3/uL (0-1.3); Monocytes % (auto) 7.8 % (0.0-12.0); Nucleated Red Blood Cells % 0.1 %; Red Blood Cells 3.44 10^6/uL (4.0-5.20)
[2021-12-29 06:21] LABS: Basophils % (auto) 0.5 % (0.0-2.0); Eosinophils % (auto) 2.2 % (0.0-7.0); Hematocrit 26.8 % (36.0-46.0); Hemoglobin 9.1 g/dL (12.2-16.2); Lymphocytes # (auto) 1.5 10 ^3/uL (0.4-5.4); Lymphocytes % (auto) 27.1 % (10.0-50.0); Mean Corpuscular Hemoglobin 26.5 pg (28.0-32.0); Mean Corpuscular Volume 77.9 fL (80.0-100.0); Neutrophils # (auto) 3.4 10 ^3/uL (1.6-8.6); Neutrophils % (auto) 62.4 % (37.0-80.0); White Blood Cell 5.4 10^3/uL (4.4-10.8)
[2021-12-29 06:30] LABS: Red Cell Distribution Width 26.6 % (11.8-14.3)
[2021-12-29 06:33] LABS: Potassium 3.2 mmol/L (3.5-5.1)
[2021-12-29 06:42] LABS: BUN/Creatinine Ratio 19.3; Calcium 8.3 mg/dL (8.5-10.1)
[2021-12-29 09:00] VITALS: BP 142/44
[2021-12-29] MEDS: APIXABAN 2.5 MG TAB PO SCH ×2 (09:49→21:13)
[2021-12-29] MEDS: VALSARTAN 80 MG TAB PO SCH (09:49)
[2021-12-29] MEDS: FAMOTIDINE 20 MG TAB PO SCH (09:49)
[2021-12-29 13:00] VITALS: BP 148/68
[2021-12-29 17:00] VITALS: BP 148/69
[2021-12-29 22:00] VITALS: BP 148/56
[2021-12-30 05:00] VITALS: BP 133/65
[2021-12-30 06:54] LABS: Basophils # (auto) 0 10 ^3/uL (0-0.2); Eosinophils # (auto) 0.1 10 ^3/uL (0-0.8); Lymphocytes # (auto) 1.3 10 ^3/uL (0.4-5.4); Monocytes # (auto) 0.4 10 ^3/uL (0-1.3); Neutrophils # (auto) 3.2 10 ^3/uL (1.6-8.6)
[2021-12-30 06:56] LABS: Basophils % (auto) 0.5 % (0.0-2.0); Eosinophils % (auto) 2.2 % (0.0-7.0); Hematocrit 31.3 % (36.0-46.0); Hemoglobin 10.2 g/dL (12.2-16.2); Lymphocytes % (auto) 25.6 % (10.0-50.0); Mean Corpuscular Hgb Conc. 32.8 g/dL (32.0-36.0); Mean Corpuscular Volume 79.5 fL (80.0-100.0); Monocytes % (auto) 7.8 % (0.0-12.0); Neutrophils % (auto) 63.9 % (37.0-80.0); Red Blood Cells 3.94 10^6/uL (4.0-5.20); White Blood Cell 5.1 10^3/uL (4.4-10.8)
[2021-12-30 06:58] LABS: Calcium 8.7 mg/dL (8.5-10.1); Potassium 3.7 mmol/L (3.5-5.1)
[2021-12-30 07:01] LABS: Red Cell Distribution Width 27.1 % (11.8-14.3)
[2021-12-30] MEDS: ACCU-CHEK COMFORT CURVE STRIP VI SCH ×2 (07:04→11:30)
[2021-12-30] MEDS: HYDROcodone-ACET 5/325MG TAB PO PRN (07:04)
[2021-12-30] MEDS: LEVOTHYROXINE SODIUM 25 MCG TAB PO SCH (07:04)
[2021-12-30 07:05] LABS: BUN/Creatinine Ratio 19.5
[2021-12-30] MEDS: InsuLIN REG 1unit/0.01ml Soln (100units/ml) SC SCH ×2 (07:10→11:30)
[2021-12-30 08:00] VITALS: BP_SYST 130; BP_DIAS 58; BP_DIAS 78
[2021-12-30] MEDS: VALSARTAN 80 MG TAB PO SCH (09:45)
[2021-12-30] MEDS: APIXABAN 2.5 MG TAB PO SCH (09:45)
[2021-12-30] MEDS: FAMOTIDINE 20 MG TAB PO SCH (09:46)
[2021-12-30 12:00] VITALS: BP 151/65
[2021-12-30 16:00] VITALS: BP 161/66
[2021-12-30 16:04] VITALS: BP 150/66
== END 2021-12-30 19:02 | DRG 556 ==
LOC: ER 13:07 → EDBD 13:07 → TELE 21:00 → TELE-WESTW 22:50
PROVIDERS: ADMIT Internal Medicine; ATTEND Internal Medicine Pulmonary Disease
DX: M25.552 Pain in left hip (principal); W01.0XXA Fall on same level from slipping, tripping and stumbling without subsequent striking against object, initial encounter; E11.9 Type 2 diabetes mellitus without complications; E03.9 Hypothyroidism, unspecified; Z20.822 Contact with and (suspected) exposure to COVID-19; I10 Essential (primary) hypertension; I25.10 Atherosclerotic heart disease of native coronary artery without angina pectoris; Z90.710 Acquired absence of both cervix and uterus; Z82.49 Family history of ischemic heart disease and other diseases of the circulatory system; Z83.3 Family history of diabetes mellitus; Z90.49 Acquired absence of other specified parts of digestive tract; Y93.89 Activity, other specified; Y92.89 Other specified places as the place of occurrence of the external cause; Y99.8 Other external cause status
CPT/HCPCS: 36415; 73502; 80048; 80053; 82962; 84443; 85025; 87081; 87426; 93971; 96374; 97116; 97163; 97530; G0378; J1815